=== PATIENT | male | born 1960 | race African-American/Black ===

== ENCOUNTER 2017-12-06 05:26 | Inpatient (IN) | payer MEDICARE, MEDICAID ==
[~2017-12-06] VITALS: Ht 177.8 cm; Wt 50.5 kg
[2017-12-06] VITALS (8 sets, daily range): BP systolic 79–147; BP diastolic 45–82
[2017-12-06] MEDS: BUDESONIDE (INHALATION) 0.5 MG/2 ML NEB NEB SCH (01:30)
[~2017-12-06 05:26] MED LIST: ALPR0.25 PO; BACL20TA PO; BUDE0.5S NEB; IPRAAER6 IN; LORANTIDINE; MONT5CHW17 PO; MORP60TA25 PO; PERCOT PO; PRE1T PO; PRE5T PO; TIZA4CAP PO
[2017-12-06] MEDS ORDERED: ALBUTEROL SULF 2.5 MG/0.5ML(0.5%) NEB SOLN NEB ONE ×2 (06:00→12:00)
[2017-12-06 06:22] LABS: Basophils # (auto) 0.2 uL; Basophils % (auto) 1.1 % (0.0-2.0); Eosinophils # (auto) 0.1 uL; Eosinophils % (auto) 0.8 % (0.0-7.0); Hematocrit 37.2 % (41.0-53.0); Hemoglobin 11.6 g/dL (13.5-17.5); Lymphocytes # (auto) 3.2 uL; Lymphocytes % (auto) 19.8 % (10.0-50.0); Mean Corpuscular Hemoglobin 29.6 pg (28.0-32.0); Mean Corpuscular Hgb Conc. 31.3 g/dL (32.0-36.0); Mean Corpuscular Volume 94.7 fL (80.0-100.0); Monocytes # (auto) 1.2 uL; Monocytes % (auto) 7.4 % (0.0-12.0); Neutrophils # (auto) 11.5 uL; Neutrophils % (auto) 70.9 % (37.0-80.0); Nucleated Red Blood Cells % 0.1 %; Platelet Count (auto) 375 10^3/uL (140-450); Red Blood Cells 3.93 10^6/uL (4.5-5.90); Red Cell Distribution Width 13.6 % (11.8-14.3); White Blood Cell 16.2 10^3/uL (4.4-10.8)
[2017-12-06] MEDS ORDERED: ONDANSETRON HCL 4 MG/2 ML VIAL IV ONE (06:30)
[2017-12-06] MEDS ORDERED: MORPHINE SULFATE 10 MG/ML INJ 1ML SDV IV ONE (06:30)
[2017-12-06] MEDS ORDERED: ACETAMINOPHEN 325 MG TAB PO ONE (06:30)
[2017-12-06 06:41] LABS: INR 0.98 (0.9-1.15); Partial Thromboplastin Time 31.9 sec (22.64-33.71); Prothrombin Time 10.7 sec (9.37-12.3)
[2017-12-06] MEDS ORDERED: methylPREDNISolone SOD SUCC 125 MG/2 ML VL IV ONE (06:45)
[2017-12-06] MEDS ORDERED: LEVOFLOXACIN 500MG 100 ML IV ONE (06:45)
[2017-12-06] MEDS ORDERED: HYDROmorphone HCL 2 MG/ML VL IV ONE (06:45)
[2017-12-06 06:51] LABS: Alanine Aminotransferase 16 U/L (16-61); Albumin 3.5 g/dL (3.4-5.0); Alkaline Phosphatase 100 U/L (45-117); Anion Gap 7 (5-15); Aspartate Aminotransferase 13 U/L (15-37); BUN/Creatinine Ratio 20.5; Bilirubin, Total 0.6 mg/dL (0.2-1.0); Blood Urea Nitrogen 18 mg/dL (7-18); Calcium 8.8 mg/dL (8.5-10.1); Carbon Dioxide 35 mmol/L (21-32); Chloride 98 mmol/L (98-107); GFR African American 116 mL/min; GFR Non-African American 96 mL/min; Glucose 165 mg/dL (74-106); Magnesium 2.4 mg/dL (1.6-2.6); Potassium 4.5 mmol/L (3.5-5.1); Sodium 140 mmol/L (136-145); Total Protein 7.9 g/dL (6.4-8.2)
[2017-12-06] MEDS ORDERED: MORPHINE SULF INJ 2 MG/ML SYRINGE 1ML IV PRN (11:00)
[2017-12-06] MEDS ORDERED: SODIUM CHLORIDE 0.9% 1,000 ML IV ONE (11:00)
[2017-12-06] MEDS ORDERED: NITROGLYCERIN 0.4 MG SL TAB SL PRN (11:00)
[2017-12-06] MEDS ORDERED: methylPREDNISolone SOD SUCC 40 MG/ML VL IV ONE (14:00)
[2017-12-06] MEDS ORDERED: hydrALAZINE HCL 20 MG/ML VL IV ONE (14:00)
[2017-12-06] MEDS: methylPREDNISolone SOD SUCC 125 MG/2 ML VL IV SCH ×2 (14:29→22:11)
[2017-12-06] MEDS ORDERED: hydrALAZINE HCL 20 MG/ML VL IV PRN (14:30)
[2017-12-07] MEDS: HYDROcodone-ACET 10/325MG TAB PO PRN ×2 (05:54→21:12)
[2017-12-07] MEDS: methylPREDNISolone SOD SUCC 125 MG/2 ML VL IV SCH ×3 (05:54→21:12)
[2017-12-07] MEDS: BUDESONIDE (INHALATION) 0.5 MG/2 ML NEB NEB SCH ×2 (06:08→18:05)
[2017-12-07 06:26] LABS: Hematocrit 33.2 % (41.0-53.0); Hemoglobin 10.8 g/dL (13.5-17.5); Mean Corpuscular Hemoglobin 30.5 pg (28.0-32.0); Mean Corpuscular Hgb Conc. 32.5 g/dL (32.0-36.0); Mean Corpuscular Volume 93.7 fL (80.0-100.0); Platelet Count (auto) 313 10^3/uL (140-450); Red Blood Cells 3.54 10^6/uL (4.5-5.90); Red Cell Distribution Width 13.8 % (11.8-14.3)
[2017-12-07 06:33] LABS: Basophils % (manual) 0 (0.0-2.0); Eosinophils % (manual) 0 (0-7); Metamyelocytes % 0; White Blood Cell 31.3 10^3/uL (4.4-10.8)
[2017-12-07 06:34] LABS: Blast Cells 0; Myelocytes % 0; Promyelocytes % 0; Reactive Lymphocytes 0
[2017-12-07 06:52] LABS: BUN/Creatinine Ratio 27.4; Potassium 4.3 mmol/L (3.5-5.1)
[2017-12-07 09:00] VITALS: BP 90/53
[2017-12-07 09:54] LABS: Band Neutrophils % (manual) 11; Lymphocytes % (manual) 2 (10.0-50.0); Monocytes % (manual) 4 (0-12)
[2017-12-07] MEDS: LEVOFLOXACIN 500MG 100 ML IV SCH (10:57)
[2017-12-07] MEDS: guaiFENesin-DM 100/10mg/5ml SYR PO PRN ×2 (11:41→21:13)
[2017-12-07 13:00] VITALS: BP 111/70
[2017-12-07] MEDS ORDERED: ROFL1TAB2 PO (13:31)
[2017-12-07] MEDS ORDERED: FLU220IH INH (13:31)
[2017-12-07] MEDS ORDERED: MORP30TA PO (13:31)
[2017-12-07 17:00] VITALS: BP 113/64
[2017-12-07] MEDS: ALPRAZolam 0.25 MG TAB PO PRN (17:47)
[2017-12-07] MEDS: ALBUTEROL SULF 2.5 MG/0.5ML(0.5%) NEB SOLN NEB PRN (18:05)
[2017-12-07] MEDS: MONTELUKAST SODIUM 10 MG TAB PO SCH (21:12)
[2017-12-07] MEDS: FLUTICASONE PROP NASAL SPR 0.05 % (50MCG) 16GM EACHNOSTRI SCH (21:26)
[2017-12-07 22:00] VITALS: BP 99/59
[2017-12-08] MEDS: ALBUTEROL SULF 2.5 MG/0.5ML(0.5%) NEB SOLN NEB PRN ×3 (04:40→18:58)
[2017-12-08 05:00] VITALS: BP 103/65
[2017-12-08 09:26] VITALS: BP 107/62
[2017-12-08] MEDS: LEVOFLOXACIN 500MG 100 ML IV SCH (09:57)
[2017-12-08] MEDS: DALIRESP 500MCG TAB PO SCH (09:58)
[2017-12-08] MEDS: ALPRAZolam 0.25 MG TAB PO PRN ×2 (09:58→21:44)
[2017-12-08] MEDS: predniSONE 20 MG TAB PO SCH (09:58)
[2017-12-08] MEDS: FLUTICASONE PROP NASAL SPR 0.05 % (50MCG) 16GM EACHNOSTRI SCH ×2 (09:58→21:34)
[2017-12-08] MEDS: MUCINEX 600 MG PO SCH (10:05)
[2017-12-08] MEDS: guaiFENesin-DM 100/10mg/5ml SYR PO PRN ×2 (10:06→21:45)
[2017-12-08] MEDS: BUDESONIDE (INHALATION) 0.5 MG/2 ML NEB NEB SCH ×2 (10:16→18:59)
[2017-12-08] MEDS: BOOST PLUS 8 ounce PO SCH ×2 (12:00→18:14)
[2017-12-08 12:58] VITALS: BP 105/53
[2017-12-08 15:07] LABS: CRP High Sensitivity 10.3 mg/dL (< 0.3)
[2017-12-08] MEDS: HYDROcodone-ACET 10/325MG TAB PO PRN (17:25)
[2017-12-08 17:26] VITALS: BP 112/61
[2017-12-08] MEDS: MONTELUKAST SODIUM 10 MG TAB PO SCH (21:34)
[2017-12-08 21:51] VITALS: BP 96/47
[2017-12-09] MEDS: ALBUTEROL SULF 2.5 MG/0.5ML(0.5%) NEB SOLN NEB PRN ×2 (00:27→10:38)
[2017-12-09 05:26] VITALS: BP 107/57
[2017-12-09] MEDS: HYDROcodone-ACET 10/325MG TAB PO PRN ×2 (07:50→21:37)
[2017-12-09 09:00] VITALS: BP 93/52
[2017-12-09 09:29] VITALS: BP 93/52
[2017-12-09] MEDS: FLUTICASONE PROP NASAL SPR 0.05 % (50MCG) 16GM EACHNOSTRI SCH ×2 (09:50→22:53)
[2017-12-09] MEDS: DALIRESP 500MCG TAB PO SCH (09:51)
[2017-12-09] MEDS: LEVOFLOXACIN 500MG 100 ML IV SCH (09:51)
[2017-12-09] MEDS: MUCINEX 600 MG PO SCH (09:51)
[2017-12-09] MEDS: ALPRAZolam 0.25 MG TAB PO PRN ×2 (09:51→21:37)
[2017-12-09] MEDS: predniSONE 20 MG TAB PO SCH (09:51)
[2017-12-09] MEDS: guaiFENesin-DM 100/10mg/5ml SYR PO PRN ×2 (09:52→21:37)
[2017-12-09] MEDS: BOOST PLUS 8 ounce PO SCH ×2 (09:54→12:00)
[2017-12-09] MEDS: BUDESONIDE (INHALATION) 0.5 MG/2 ML NEB NEB SCH ×2 (10:38→22:14)
[2017-12-09 12:00] VITALS: BP 103/57
[2017-12-09 17:01] VITALS: BP 118/60
[2017-12-09] MEDS: BOOST 8 ounces PO SCH (18:00)
[2017-12-09] MEDS: MONTELUKAST SODIUM 10 MG TAB PO SCH (21:37)
[2017-12-09 22:06] VITALS: BP 105/66
[2017-12-10 05:14] VITALS: BP 148/97
[2017-12-10 05:17] VITALS: BP 108/61
[2017-12-10] MEDS: ALBUTEROL SULF 2.5 MG/0.5ML(0.5%) NEB SOLN NEB PRN ×2 (06:18→22:55)
[2017-12-10] MEDS: BUDESONIDE (INHALATION) 0.5 MG/2 ML NEB NEB SCH ×2 (06:18→22:55)
[2017-12-10 08:00] VITALS: BP 157/104
[2017-12-10] MEDS: BOOST 8 ounces PO SCH ×3 (09:10→19:27)
[2017-12-10] MEDS: predniSONE 20 MG TAB PO SCH (10:55)
[2017-12-10] MEDS: DALIRESP 500MCG TAB PO SCH (10:55)
[2017-12-10] MEDS: FLUTICASONE PROP NASAL SPR 0.05 % (50MCG) 16GM EACHNOSTRI SCH ×2 (10:55→21:34)
[2017-12-10] MEDS: MUCINEX 600 MG PO SCH (10:55)
[2017-12-10] MEDS: LEVOFLOXACIN 500MG 100 ML IV SCH (10:55)
[2017-12-10] MEDS: guaiFENesin-DM 100/10mg/5ml SYR PO PRN ×2 (11:25→21:14)
[2017-12-10] MEDS: HYDROcodone-ACET 10/325MG TAB PO PRN ×2 (11:27→21:34)
[2017-12-10 12:00] VITALS: BP 127/68
[2017-12-10 17:00] VITALS: BP 104/62
[2017-12-10] MEDS: ALPRAZolam 0.25 MG TAB PO PRN (21:13)
[2017-12-10] MEDS: MONTELUKAST SODIUM 10 MG TAB PO SCH (21:13)
[2017-12-10 22:13] VITALS: BP 106/53
[2017-12-11 04:51] VITALS: BP 145/80
[2017-12-11 04:54] VITALS: BP 105/63
[2017-12-11] MEDS: BOOST 8 ounces PO SCH (08:00)
[2017-12-11 08:35] VITALS: BP 98/49
[2017-12-11] MEDS: ALBUTEROL SULF 2.5 MG/0.5ML(0.5%) NEB SOLN NEB PRN (09:42)
[2017-12-11] MEDS: FLUTICASONE PROP NASAL SPR 0.05 % (50MCG) 16GM EACHNOSTRI SCH (09:43)
[2017-12-11] MEDS: BUDESONIDE (INHALATION) 0.5 MG/2 ML NEB NEB SCH (09:43)
[2017-12-11] MEDS: LEVOFLOXACIN 500MG 100 ML IV SCH (09:44)
[2017-12-11] MEDS: DALIRESP 500MCG TAB PO SCH (09:44)
[2017-12-11] MEDS: MUCINEX 600 MG PO SCH (09:45)
[2017-12-11] MEDS: MONTELUKAST SODIUM 10 MG TAB PO SCH (09:45)
[2017-12-11] MEDS: predniSONE 20 MG TAB PO SCH (09:45)
[2017-12-11] MEDS: guaiFENesin-DM 100/10mg/5ml SYR PO PRN (09:50)
[2017-12-11] MEDS: HYDROcodone-ACET 10/325MG TAB PO PRN (09:50)
== END 2017-12-11 11:35 | disposition home or self-care (01) | DRG 189 ==
LOC: EDBD 05:26 → ER 05:26 → TELE 05:27 → TELE-CENTR 20:00 → CENTRAL 12-10 00:12
PROVIDERS: ADMIT Internal Medicine; ATTEND Internal Medicine
PROC: 5A09357 Assistance with Respiratory Ventilation, Less than 24 Consecutive Hours, Continuous Positive Airway Pressure (ICD-10-PCS; principal; 2017-12-06)
DX: J96.02 Acute respiratory failure with hypercapnia (principal); E87.2 Acidosis; I27.20 Pulmonary hypertension, unspecified; I50.9 Heart failure, unspecified; J44.9 Chronic obstructive pulmonary disease, unspecified; Z99.81 Dependence on supplemental oxygen; Z79.52 Long term (current) use of systemic steroids; Z87.891 Personal history of nicotine dependence
CPT/HCPCS: 36415; 36600; 71045; 80048; 80053; 80061; 81001; 82805; 82962; 83036; 83605; 83735; 83880; 84484; 85007; 85025; 85027; 85379; 85610; 85652; 85730; 86141; 87040; 93005; 93306; 94640; 94644; 94660; 96365; 96375; 96376; 99291; J1956; J2405

== ENCOUNTER 2018-06-07 09:07 | Inpatient (IN) | payer OTHER, MEDICAID ==
[~2018-06-07] VITALS: Ht 175.3 cm; Wt 48.2 kg
[~2018-06-07 09:07] MED LIST changes: +FLU220IH INH; -PRE5T PO; +ROFL1TAB2 PO
[2018-06-07] MEDS ORDERED: SODIUM CHLORIDE 0.9% 1,000 ML IV ONE (09:15)
[2018-06-07] MEDS ORDERED: methylPREDNISolone SOD SUCC 125 MG/2 ML VL IV ONE (09:15)
[2018-06-07] MEDS ORDERED: ALBUTEROL SULF 2.5 MG/0.5ML(0.5%) NEB SOLN NEB ONE (09:15)
[2018-06-07] MEDS ORDERED: IPRATROPIUM BROM 0.5 MG/2.5ML INH SOL NEB ONE (09:15)
[2018-06-07 09:33] LABS: Basophils # (auto) 0 uL; Basophils % (auto) 0.2 % (0.0-2.0); Eosinophils # (auto) 0 uL; Eosinophils % (auto) 0.1 % (0.0-7.0); Hematocrit 35.4 % (41.0-53.0); Hemoglobin 11.5 g/dL (13.5-17.5); Lymphocytes % (auto) 6.4 % (10.0-50.0); Mean Corpuscular Hemoglobin 31.5 pg (28.0-32.0); Mean Corpuscular Hgb Conc. 32.5 g/dL (32.0-36.0); Mean Corpuscular Volume 96.9 fL (80.0-100.0); Monocytes # (auto) 1.4 uL; Monocytes % (auto) 9.1 % (0.0-12.0); Neutrophils % (auto) 84.2 % (37.0-80.0); Platelet Count (auto) 201 10^3/uL (140-450); Red Blood Cells 3.66 10^6/uL (4.5-5.90); Red Cell Distribution Width 14.6 % (11.8-14.3); White Blood Cell 15.5 10^3/uL (4.4-10.8)
[2018-06-07 09:43] LABS: Partial Thromboplastin Time 36.3 sec (23.78-33.04); Prothrombin Time 10.7 sec (9.27-12.13)
[2018-06-07 09:51] LABS: Albumin 2.5 g/dL (3.4-5.0); BUN/Creatinine Ratio 34.2; Bilirubin, Total 0.7 mg/dL (0.2-1.0); Calcium 8.6 mg/dL (8.5-10.1); Potassium 3.5 mmol/L (3.5-5.1); Total Protein 7.7 g/dL (6.4-8.2)
[2018-06-07 10:00] VITALS: BP 101/59
[2018-06-07] MEDS ORDERED: cefTRIAXone 1GM/10ml IVPUSH 10 ML IV ONE (10:45)
[2018-06-07] MEDS ORDERED: AZITHROMYCIN 500MG/ 250ML 250 ML IV ONE (10:45)
[2018-06-07 10:55] VITALS: BP 101/59
[2018-06-07] MEDS ORDERED: PROMETHAZINE HCL 25 MG/ML 1ML IV PRN (11:00)
[2018-06-07] MEDS ORDERED: MORPHINE SULFATE 4 MG/ML SYR/VIAL IV PRN ×2 (11:00)
[2018-06-07] MEDS ORDERED: TEMAZEPAM 15 MG CAP PO PRN (11:00)
[2018-06-07] MEDS ORDERED: LACTULOSE 20Gm/30ML SOLN PO PRN (11:00)
[2018-06-07] MEDS ORDERED: LORazepam 0.5 MG TAB PO PRN ×2 (11:00→11:30)
[2018-06-07] MEDS ORDERED: ALBUTEROL SULF 2.5 MG/0.5ML(0.5%) NEB SOLN NEB PRN (11:00)
[2018-06-07] MEDS ORDERED: NITROGLYCERIN 0.4 MG SL TAB SL PRN (11:00)
[2018-06-07] MEDS ORDERED: ACETAMINOPHEN 500 MG TAB PO PRN (11:00)
[2018-06-07] MEDS ORDERED: KETOROLAC TROMETH 30 MG/ML 1ML VIAL IV ONE (11:00)
[2018-06-07] MEDS: SODIUM CHLORIDE 0.9% 1,000 ML IV SCH (11:48)
[2018-06-07] MEDS: LEVOFLOXACIN 500MG 100 ML IV SCH (11:48)
[2018-06-07] MEDS: ENOXAPARIN SOD 40 MG/0.4 ML SYRINGE SC SCH (11:48)
[2018-06-07] MEDS: IPRATROPIUM BROM 0.5 MG/2.5ML INH SOL NEB SCH ×3 (12:14→23:25)
[2018-06-07] MEDS: ALBUTEROL SULF 2.5 MG/0.5ML(0.5%) NEB SOLN NEB SCH ×3 (12:14→23:25)
[2018-06-07 13:17] VITALS: BP 91/57
[2018-06-07] MEDS ORDERED: PATIENTS OWN MEDICATION (Baclofen 10 MG) PO SCH (14:00)
[2018-06-07] MEDS ORDERED: BUDESONIDE (INHALATION) 0.5 MG/2 ML NEB NEB SCH (14:00)
[2018-06-07] MEDS: CLINDAMYCIN 600MG IV 50 ML IV SCH (14:57)
[2018-06-07] MEDS: methylPREDNISolone SOD SUCC 40 MG/ML VL IV SCH (14:57)
[2018-06-07] MEDS: BACLOFEN 10 MG TAB PO SCH (14:57)
[2018-06-07 16:31] VITALS: BP 83/53
[2018-06-07] MEDS ORDERED: IOHEXOL 300 MG/ML 100ML BOTTLE IJ ONE (16:41)
[2018-06-07 17:23] VITALS: BP 92/57
[2018-06-07] MEDS ORDERED: PATIENTS OWN MEDICATION (Montelukast Sodium (Singulair) 10 MG) PO SCH (18:00)
[2018-06-07] MEDS: BUDESONIDE (INHALATION) 0.5 MG/2 ML NEB NEB SCH (18:09)
[2018-06-07 22:00] VITALS: BP 84/55
[2018-06-07] MEDS ORDERED: FLUTICASONE PROPIONATE 220 MCG INH SCH (22:00)
[2018-06-07] MEDS ORDERED: PATIENTS OWN MEDICATION (Alprazolam (Xanax) 1 TAB) PO SCH (22:00)
[2018-06-07] MEDS ORDERED: MORPHINE SULFATE 30 MG PO SCH (22:00)
[2018-06-08] MEDS: CLINDAMYCIN 600MG IV 50 ML IV SCH ×2 (00:16→05:29)
[2018-06-08] MEDS: TIZANIDINE 4 MG PO SCH ×3 (00:16→22:00)
[2018-06-08] MEDS: methylPREDNISolone SOD SUCC 40 MG/ML VL IV SCH ×5 (00:16→22:07)
[2018-06-08] MEDS: BACLOFEN 10 MG TAB PO SCH ×4 (00:17→22:07)
[2018-06-08] MEDS: MORPHINE SULF 30 mg ER tab PO SCH ×3 (00:17→22:00)
[2018-06-08] MEDS: SODIUM CHLORIDE 0.9% 1,000 ML IV SCH ×3 (00:18→22:11)
[2018-06-08] MEDS: ALPRAZolam 0.25 MG TAB PO SCH ×3 (00:18→22:00)
[2018-06-08 05:00] VITALS: BP 91/55
[2018-06-08] MEDS: MONTELUKAST SODIUM 10 MG TAB PO SCH ×2 (05:28→18:08)
[2018-06-08] MEDS: HYDROcodone-ACET 5/325MG TAB PO PRN ×3 (05:29→22:05)
[2018-06-08] MEDS: IPRATROPIUM BROM 0.5 MG/2.5ML INH SOL NEB SCH ×3 (06:25→22:22)
[2018-06-08] MEDS: BUDESONIDE (INHALATION) 0.5 MG/2 ML NEB NEB SCH ×2 (06:25→22:22)
[2018-06-08] MEDS: ALBUTEROL SULF 2.5 MG/0.5ML(0.5%) NEB SOLN NEB SCH ×3 (06:25→22:22)
[2018-06-08 07:51] LABS: Basophils # (auto) 0 uL; Eosinophils # (auto) 0 uL; Hematocrit 33.3 % (41.0-53.0); Lymphocytes # (auto) 0.4 uL; Lymphocytes % (auto) 3.2 % (10.0-50.0); Mean Corpuscular Hemoglobin 31.6 pg (28.0-32.0); Mean Corpuscular Volume 95.6 fL (80.0-100.0); Monocytes # (auto) 0.4 uL; Neutrophils # (auto) 12.4 uL; Neutrophils % (auto) 93.8 % (37.0-80.0); Nucleated Red Blood Cells % 0.1 %; Platelet Count (auto) 198 10^3/uL (140-450); Red Blood Cells 3.49 10^6/uL (4.5-5.90); Red Cell Distribution Width 14.4 % (11.8-14.3); White Blood Cell 13.2 10^3/uL (4.4-10.8)
[2018-06-08 07:59] LABS: Albumin 2.1 g/dL (3.4-5.0); BUN/Creatinine Ratio 46.4; Bilirubin, Total 0.4 mg/dL (0.2-1.0); Calcium 8.6 mg/dL (8.5-10.1); Potassium 3.6 mmol/L (3.5-5.1); Total Protein 6.9 g/dL (6.4-8.2)
[2018-06-08] MEDS ORDERED: IOHEXOL 300 MG/ML 100ML BOTTLE IJ ONE (08:08)
[2018-06-08 09:00] VITALS: BP 88/48
[2018-06-08] MEDS: PANTOPRAZOLE 40 MG TAB PO SCH (09:23)
[2018-06-08] MEDS: LEVOFLOXACIN 500MG 100 ML IV SCH (09:23)
[2018-06-08] MEDS: ENOXAPARIN SOD 40 MG/0.4 ML SYRINGE SC SCH (09:24)
[2018-06-08 13:00] VITALS: BP 93/61
[2018-06-08 16:51] VITALS: BP 86/38
[2018-06-08] MEDS: PIPERACILLIN-TAZOB 3.375GM 100 ML IV SCH (18:08)
[2018-06-08 22:00] VITALS: BP 89/48
[2018-06-08 22:36] LABS: Urine Bacteria NONE SEEN /hpf (None Seen); Urine Blood Negative /uL (Negative); Urine WBC <1 /hpf (0 - 3)
[2018-06-08 22:39] LABS: Urine Specific Gravity > 1.050 (1.001-1.035)
[2018-06-09] MEDS: PIPERACILLIN-TAZOB 3.375GM 100 ML IV SCH ×4 (00:23→17:49)
[2018-06-09] MEDS: IPRATROPIUM BROM 0.5 MG/2.5ML INH SOL NEB SCH ×4 (00:36→18:36)
[2018-06-09] MEDS: ALBUTEROL SULF 2.5 MG/0.5ML(0.5%) NEB SOLN NEB SCH ×4 (00:36→18:36)
[2018-06-09] MEDS: methylPREDNISolone SOD SUCC 40 MG/ML VL IV SCH ×2 (03:03→17:49)
[2018-06-09] MEDS: HYDROcodone-ACET 5/325MG TAB PO PRN ×3 (04:17→21:04)
[2018-06-09 05:00] VITALS: BP 85/48
[2018-06-09] MEDS: BUDESONIDE (INHALATION) 0.5 MG/2 ML NEB NEB SCH (06:02)
[2018-06-09] MEDS: BACLOFEN 10 MG TAB PO SCH ×3 (06:04→21:02)
[2018-06-09 06:53] LABS: Basophils # (auto) 0 uL; Basophils % (auto) 0.2 % (0.0-2.0); Eosinophils # (auto) 0 uL; Hematocrit 29.3 % (41.0-53.0); Hemoglobin 9.7 g/dL (13.5-17.5); Lymphocytes # (auto) 0.3 uL; Lymphocytes % (auto) 3.6 % (10.0-50.0); Mean Corpuscular Hemoglobin 31.7 pg (28.0-32.0); Mean Corpuscular Hgb Conc. 33.2 g/dL (32.0-36.0); Mean Corpuscular Volume 95.4 fL (80.0-100.0); Monocytes # (auto) 0.3 uL; Monocytes % (auto) 3.6 % (0.0-12.0); Neutrophils # (auto) 8.7 uL; Neutrophils % (auto) 92.6 % (37.0-80.0); Nucleated Red Blood Cells % 0.1 %; Platelet Count (auto) 222 10^3/uL (140-450); Red Blood Cells 3.07 10^6/uL (4.5-5.90); Red Cell Distribution Width 14.3 % (11.8-14.3); White Blood Cell 9.3 10^3/uL (4.4-10.8)
[2018-06-09 07:15] LABS: Calcium 8.2 mg/dL (8.5-10.1); Magnesium 2.4 mg/dL (1.6-2.6); Potassium 3.8 mmol/L (3.5-5.1)
[2018-06-09 07:17] LABS: BUN/Creatinine Ratio 38.8
[2018-06-09 08:33] VITALS: BP 86/46
[2018-06-09] MEDS ORDERED: VANCOMYCIN PER PHARMACY 0 MG IV SCH (09:00)
[2018-06-09] MEDS ORDERED: DEXTROSE (50%) 50ML SYRG IV PRN (09:30)
[2018-06-09] MEDS: ALPRAZolam 0.25 MG TAB PO SCH ×2 (10:00→21:03)
[2018-06-09] MEDS: MORPHINE SULF 30 mg ER tab PO SCH ×2 (10:00→21:03)
[2018-06-09] MEDS: TIZANIDINE 4 MG PO SCH ×2 (10:00→20:29)
[2018-06-09] MEDS: PANTOPRAZOLE 40 MG TAB PO SCH (10:21)
[2018-06-09] MEDS: VANCOMYCIN 500 MG in D5W 5% 100 ML IV SCH ×2 (10:22→21:02)
[2018-06-09] MEDS: ENOXAPARIN SOD 40 MG/0.4 ML SYRINGE SC SCH (10:22)
[2018-06-09] MEDS: ACCU-CHEK COMFORT CURVE STRIP VI SCH ×3 (12:00→21:03)
[2018-06-09 12:07] VITALS: BP 91/57
[2018-06-09] MEDS: InsuLIN REG 1unit/0.01ml Soln (100units/ml) SC SCH ×3 (12:34→21:03)
[2018-06-09] MEDS: MONTELUKAST SODIUM 10 MG TAB PO SCH (17:49)
[2018-06-09] MEDS: SODIUM CHLORIDE 0.9% 1,000 ML IV SCH ×2 (17:51→20:04)
[2018-06-09 19:48] VITALS: BP 105/70
[2018-06-10] VITALS (7 sets, daily range): BP systolic 85–106; BP diastolic 32–51
[2018-06-10] MEDS: PIPERACILLIN-TAZOB 3.375GM 100 ML IV SCH ×4 (00:03→17:43)
[2018-06-10] MEDS: methylPREDNISolone SOD SUCC 40 MG/ML VL IV SCH ×3 (00:03→17:42)
[2018-06-10] MEDS: IPRATROPIUM BROM 0.5 MG/2.5ML INH SOL NEB SCH ×4 (00:15→19:04)
[2018-06-10] MEDS: ALBUTEROL SULF 2.5 MG/0.5ML(0.5%) NEB SOLN NEB SCH ×4 (00:15→19:05)
[2018-06-10] MEDS: BUDESONIDE (INHALATION) 0.5 MG/2 ML NEB NEB SCH ×3 (00:15→19:05)
[2018-06-10] MEDS: SODIUM CHLORIDE 0.9% 1,000 ML IV SCH ×2 (05:22→16:30)
[2018-06-10] MEDS: HYDROcodone-ACET 5/325MG TAB PO PRN ×2 (05:22→19:40)
[2018-06-10 05:42] LABS: Basophils # (auto) 0 uL; Basophils % (auto) 0.2 % (0.0-2.0); Eosinophils # (auto) 0 uL; Hematocrit 29.3 % (41.0-53.0); Hemoglobin 9.9 g/dL (13.5-17.5); Lymphocytes # (auto) 0.5 uL; Lymphocytes % (auto) 4.7 % (10.0-50.0); Mean Corpuscular Hemoglobin 32.4 pg (28.0-32.0); Mean Corpuscular Hgb Conc. 33.6 g/dL (32.0-36.0); Mean Corpuscular Volume 96.3 fL (80.0-100.0); Monocytes # (auto) 0.3 uL; Monocytes % (auto) 2.5 % (0.0-12.0); Neutrophils # (auto) 9.4 uL; Neutrophils % (auto) 92.6 % (37.0-80.0); Platelet Count (auto) 239 10^3/uL (140-450); Red Blood Cells 3.05 10^6/uL (4.5-5.90); Red Cell Distribution Width 14.1 % (11.8-14.3); White Blood Cell 10.2 10^3/uL (4.4-10.8)
[2018-06-10] MEDS: BACLOFEN 10 MG TAB PO SCH ×3 (06:00→21:34)
[2018-06-10 06:07] LABS: BUN/Creatinine Ratio 28.3; Calcium 7.6 mg/dL (8.5-10.1); Potassium 3.7 mmol/L (3.5-5.1)
[2018-06-10] MEDS: InsuLIN REG 1unit/0.01ml Soln (100units/ml) SC SCH ×4 (06:36→21:34)
[2018-06-10] MEDS: ACCU-CHEK COMFORT CURVE STRIP VI SCH ×4 (06:36→21:12)
[2018-06-10] MEDS: PANTOPRAZOLE 40 MG TAB PO SCH (09:58)
[2018-06-10] MEDS: VANCOMYCIN 500 MG in D5W 5% 100 ML IV SCH ×2 (09:58→21:49)
[2018-06-10] MEDS: ENOXAPARIN SOD 40 MG/0.4 ML SYRINGE SC SCH (09:58)
[2018-06-10] MEDS: MORPHINE SULF 30 mg ER tab PO SCH ×2 (09:59→21:11)
[2018-06-10] MEDS: TIZANIDINE 4 MG PO SCH (09:59)
[2018-06-10] MEDS: ALPRAZolam 0.25 MG TAB PO SCH ×2 (09:59→21:11)
[2018-06-10] MEDS ORDERED: MORPHINE SULFATE 4 MG/ML SYR/VIAL IV PRN (10:45)
[2018-06-10 10:56] LABS: % Iron Saturation 9.9 % (20-55)
[2018-06-10] MEDS: Ensure Enlive Chocolate 8oz Bottle PO SCH ×2 (12:00→17:44)
[2018-06-10] MEDS: MONTELUKAST SODIUM 10 MG TAB PO SCH (17:43)
[2018-06-10] MEDS: Pro-Stat SF 30ml Vanilla PO SCH (17:44)
[2018-06-11] VITALS: BP 95/48
[2018-06-11] MEDS: PIPERACILLIN-TAZOB 3.375GM 100 ML IV SCH ×2 (00:03→06:38)
[2018-06-11] MEDS: methylPREDNISolone SOD SUCC 40 MG/ML VL IV SCH ×3 (00:03→21:00)
[2018-06-11] MEDS: SODIUM CHLORIDE 0.9% 1,000 ML IV SCH ×2 (00:03→10:52)
[2018-06-11] MEDS: IPRATROPIUM BROM 0.5 MG/2.5ML INH SOL NEB SCH ×3 (00:20→18:32)
[2018-06-11] MEDS: ALBUTEROL SULF 2.5 MG/0.5ML(0.5%) NEB SOLN NEB SCH ×4 (00:20→18:31)
[2018-06-11 04:00] VITALS: BP 94/32
[2018-06-11 05:29] LABS: Basophils # (auto) 0 uL; Eosinophils # (auto) 0 uL; Hematocrit 28.4 % (41.0-53.0); Hemoglobin 9.4 g/dL (13.5-17.5); Lymphocytes # (auto) 0.5 uL; Lymphocytes % (auto) 4.9 % (10.0-50.0); Mean Corpuscular Hgb Conc. 33.2 g/dL (32.0-36.0); Mean Corpuscular Volume 96.2 fL (80.0-100.0); Monocytes # (auto) 0.2 uL; Monocytes % (auto) 2.5 % (0.0-12.0); Neutrophils % (auto) 92.6 % (37.0-80.0); Platelet Count (auto) 262 10^3/uL (140-450); Red Blood Cells 2.95 10^6/uL (4.5-5.90); Red Cell Distribution Width 14.1 % (11.8-14.3); White Blood Cell 9.7 10^3/uL (4.4-10.8)
[2018-06-11] MEDS: BACLOFEN 10 MG TAB PO SCH ×3 (05:35→22:00)
[2018-06-11] MEDS: ACCU-CHEK COMFORT CURVE STRIP VI SCH ×4 (05:35→22:00)
[2018-06-11] MEDS: InsuLIN REG 1unit/0.01ml Soln (100units/ml) SC SCH ×4 (05:41→22:00)
[2018-06-11] MEDS ORDERED: VANCOMYCIN 500 MG in D5W 5% 100 ML IV SCH (06:00)
[2018-06-11] MEDS: HYDROcodone-ACET 5/325MG TAB PO PRN ×3 (06:59→19:45)
[2018-06-11] MEDS: BUDESONIDE (INHALATION) 0.5 MG/2 ML NEB NEB SCH ×2 (07:01→18:32)
[2018-06-11 08:00] VITALS: BP 89/51
[2018-06-11] MEDS: Ensure Enlive Chocolate 8oz Bottle PO SCH ×3 (08:00→17:48)
[2018-06-11] MEDS: Pro-Stat SF 30ml Vanilla PO SCH ×2 (08:00→17:48)
[2018-06-11] MEDS: PANTOPRAZOLE 40 MG TAB PO SCH ×2 (09:54→22:00)
[2018-06-11] MEDS: ENOXAPARIN SOD 40 MG/0.4 ML SYRINGE SC SCH (09:54)
[2018-06-11] MEDS: ALPRAZolam 0.25 MG TAB PO SCH ×2 (09:54→22:00)
[2018-06-11] MEDS: MORPHINE SULF 30 mg ER tab PO SCH ×2 (09:54→22:00)
[2018-06-11] MEDS ORDERED: LEVOFLOXACIN 750MG 150 ML IV ONE (10:30)
[2018-06-11 12:00] VITALS: BP 94/51
[2018-06-11] MEDS ORDERED: FLUCONAZOLE 200MG/100ML 100 ML IV ONE (12:00)
[2018-06-11] MEDS ORDERED: LIDOCAINE HCL 5 % TOP OINT 35 GM TOP PRN (13:15)
[2018-06-11] MEDS ORDERED: GOLYTELY 4L KIT PO ONE (14:45)
[2018-06-11] MEDS ORDERED: GOLYTELY 4L KIT ONE (14:47)
[2018-06-11 16:00] VITALS: BP 101/54
[2018-06-11] MEDS: MONTELUKAST SODIUM 10 MG TAB PO SCH (19:44)
[2018-06-11 20:00] VITALS: BP 106/53
[2018-06-12] VITALS: BP 98/49
[2018-06-12] MEDS: IPRATROPIUM BROM 0.5 MG/2.5ML INH SOL NEB SCH ×5 (00:55→23:17)
[2018-06-12] MEDS: ALBUTEROL SULF 2.5 MG/0.5ML(0.5%) NEB SOLN NEB SCH ×5 (00:55→23:17)
[2018-06-12] MEDS: SODIUM CHLORIDE 0.9% 1,000 ML IV SCH ×2 (00:59→14:51)
[2018-06-12 04:00] VITALS: BP 102/56
[2018-06-12 05:24] LABS: Basophils # (auto) 0 uL; Basophils % (auto) 0.1 % (0.0-2.0); Eosinophils # (auto) 0 uL; Hematocrit 28.8 % (41.0-53.0); Hemoglobin 9.5 g/dL (13.5-17.5); Lymphocytes # (auto) 0.4 uL; Lymphocytes % (auto) 3.3 % (10.0-50.0); Mean Corpuscular Hemoglobin 31.6 pg (28.0-32.0); Mean Corpuscular Volume 95.9 fL (80.0-100.0); Monocytes # (auto) 0.2 uL; Monocytes % (auto) 1.4 % (0.0-12.0); Neutrophils # (auto) 12.2 uL; Neutrophils % (auto) 95.2 % (37.0-80.0); Platelet Count (auto) 308 10^3/uL (140-450); White Blood Cell 12.8 10^3/uL (4.4-10.8)
[2018-06-12] MEDS ORDERED: SODIUM CHLORIDE 0.9 % NEB SOLN 3ML NEB ONE (05:27)
[2018-06-12 05:35] LABS: Calcium 7.6 mg/dL (8.5-10.1); Potassium 3.8 mmol/L (3.5-5.1)
[2018-06-12] MEDS: BUDESONIDE (INHALATION) 0.5 MG/2 ML NEB NEB SCH ×2 (05:40→23:17)
[2018-06-12] MEDS: InsuLIN REG 1unit/0.01ml Soln (100units/ml) SC SCH ×3 (06:11→17:00)
[2018-06-12] MEDS: ACCU-CHEK COMFORT CURVE STRIP VI SCH ×4 (06:12→22:00)
[2018-06-12] MEDS: BACLOFEN 10 MG TAB PO SCH ×2 (06:12→14:00)
[2018-06-12 08:00] VITALS: BP 106/53
[2018-06-12] MEDS: Ensure Enlive Chocolate 8oz Bottle PO SCH ×3 (08:00→18:00)
[2018-06-12] MEDS: Pro-Stat SF 30ml Vanilla PO SCH ×2 (08:00→18:00)
[2018-06-12] MEDS: methylPREDNISolone SOD SUCC 40 MG/ML VL IV SCH (09:02)
[2018-06-12] MEDS: MORPHINE SULF 30 mg ER tab PO SCH (10:00)
[2018-06-12] MEDS: PANTOPRAZOLE 40 MG TAB PO SCH (10:00)
[2018-06-12] MEDS: ENOXAPARIN SOD 40 MG/0.4 ML SYRINGE SC SCH (10:00)
[2018-06-12] MEDS: ALPRAZolam 0.25 MG TAB PO SCH (10:00)
[2018-06-12] MEDS: LEVOFLOXACIN 750MG 150 ML IV SCH (10:59)
[2018-06-12] MEDS ORDERED: MIDAZOLAM HCL 1MG/1ML-2 ML VIAL ONE (11:29)
[2018-06-12] MEDS ORDERED: fentaNYL CITRATE 100 MCG/2 ML VL ONE (11:29)
[2018-06-12] MEDS ORDERED: PROPOFOL 10 MG/ML 20 ML IV ONE (11:32)
[2018-06-12] MEDS ORDERED: MIDAZOLAM HCL 1MG/1ML-2 ML VIAL IV ONE (11:35)
[2018-06-12] MEDS ORDERED: hydrALAZINE HCL 20 MG/ML VL IV PRN (12:15)
[2018-06-12] MEDS ORDERED: ONDANSETRON HCL 4 MG/2 ML VIAL IV ONE (12:15)
[2018-06-12] MEDS ORDERED: ePHEDrine SULFATE 50 MG/ML AMP IV PRN (12:15)
[2018-06-12] MEDS ORDERED: fentaNYL CITRATE 100 MCG/2 ML VL IV ONE (13:00)
[2018-06-12] MEDS: FLUCONAZOLE 200MG/100ML 100 ML IV SCH (14:51)
[2018-06-12] MEDS: HYDROcodone-ACET 5/325MG TAB PO PRN ×2 (15:00→20:47)
[2018-06-12 17:21] VITALS: BP 105/61
[2018-06-12] MEDS: MONTELUKAST SODIUM 10 MG TAB PO SCH (17:47)
[2018-06-12 21:09] VITALS: BP 106/54
[2018-06-13] MEDS: ALPRAZolam 0.25 MG TAB PO SCH ×3 (00:58→21:55)
[2018-06-13] MEDS: MORPHINE SULF 30 mg ER tab PO SCH ×3 (00:58→21:54)
[2018-06-13] MEDS: PANTOPRAZOLE 40 MG TAB PO SCH ×3 (00:59→21:54)
[2018-06-13] MEDS: BACLOFEN 10 MG TAB PO SCH ×4 (00:59→21:53)
[2018-06-13] MEDS: SODIUM CHLORIDE 0.9% 1,000 ML IV SCH ×2 (01:02→09:52)
[2018-06-13] MEDS: methylPREDNISolone SOD SUCC 40 MG/ML VL IV SCH ×3 (01:11→21:53)
[2018-06-13] MEDS: InsuLIN REG 1unit/0.01ml Soln (100units/ml) SC SCH ×5 (01:15→21:55)
[2018-06-13 05:07] VITALS: BP 111/56
[2018-06-13] MEDS: ACCU-CHEK COMFORT CURVE STRIP VI SCH ×4 (05:41→21:55)
[2018-06-13] MEDS: ALBUTEROL SULF 2.5 MG/0.5ML(0.5%) NEB SOLN NEB SCH ×3 (06:59→18:58)
[2018-06-13] MEDS: IPRATROPIUM BROM 0.5 MG/2.5ML INH SOL NEB SCH ×3 (06:59→18:58)
[2018-06-13] MEDS: BUDESONIDE (INHALATION) 0.5 MG/2 ML NEB NEB SCH ×2 (07:00→18:58)
[2018-06-13 07:36] LABS: Basophils # (auto) 0 uL; Basophils % (auto) 0.1 % (0.0-2.0); Eosinophils # (auto) 0 uL; Hematocrit 29.4 % (41.0-53.0); Hemoglobin 9.5 g/dL (13.5-17.5); Lymphocytes # (auto) 0.4 uL; Lymphocytes % (auto) 3.6 % (10.0-50.0); Mean Corpuscular Hemoglobin 30.9 pg (28.0-32.0); Mean Corpuscular Hgb Conc. 32.2 g/dL (32.0-36.0); Mean Corpuscular Volume 96.1 fL (80.0-100.0); Monocytes # (auto) 0.2 uL; Monocytes % (auto) 1.7 % (0.0-12.0); Neutrophils # (auto) 10.8 uL; Neutrophils % (auto) 94.6 % (37.0-80.0); Platelet Count (auto) 384 10^3/uL (140-450); Red Blood Cells 3.06 10^6/uL (4.5-5.90); Red Cell Distribution Width 14.1 % (11.8-14.3); White Blood Cell 11.4 10^3/uL (4.4-10.8)
[2018-06-13] MEDS: Ensure Enlive Chocolate 8oz Bottle PO SCH ×3 (08:00→18:00)
[2018-06-13] MEDS: Pro-Stat SF 30ml Vanilla PO SCH ×2 (08:00→18:00)
[2018-06-13 09:00] VITALS: BP 115/62
[2018-06-13] MEDS ORDERED: MORPHINE SULFATE 4 MG/ML SYR/VIAL IV PRN (09:30)
[2018-06-13] MEDS ORDERED: HYDROcodone-ACET 5/325MG TAB PO PRN (09:30)
[2018-06-13] MEDS: LEVOFLOXACIN 750MG 150 ML IV SCH (09:52)
[2018-06-13] MEDS ORDERED: ENOXAPARIN SOD 40 MG/0.4 ML SYRINGE SC SCH (10:00)
[2018-06-13] MEDS: FLUCONAZOLE 200MG/100ML 100 ML IV SCH (12:03)
[2018-06-13 13:00] VITALS: BP 106/61
[2018-06-13 17:00] VITALS: BP 114/64
[2018-06-13] MEDS: MONTELUKAST SODIUM 10 MG TAB PO SCH (18:01)
[2018-06-13 21:42] VITALS: BP 109/66
[2018-06-14] MEDS: IPRATROPIUM BROM 0.5 MG/2.5ML INH SOL NEB SCH ×2 (00:29→07:13)
[2018-06-14] MEDS: ALBUTEROL SULF 2.5 MG/0.5ML(0.5%) NEB SOLN NEB SCH ×2 (00:29→07:13)
[2018-06-14 04:32] VITALS: BP 115/56
[2018-06-14 05:35] LABS: Basophils # (auto) 0 uL; Eosinophils # (auto) 0 uL; Lymphocytes # (auto) 0.3 uL
[2018-06-14 05:39] LABS: Hematocrit 28.1 % (41.0-53.0); Hemoglobin 9.5 g/dL (13.5-17.5); Lymphocytes % (auto) 2.7 % (10.0-50.0); Mean Corpuscular Hemoglobin 32.6 pg (28.0-32.0); Mean Corpuscular Hgb Conc. 33.9 g/dL (32.0-36.0); Mean Corpuscular Volume 96.1 fL (80.0-100.0); Monocytes # (auto) 0.3 uL; Monocytes % (auto) 2.5 % (0.0-12.0); Neutrophils # (auto) 9.9 uL; Neutrophils % (auto) 94.8 % (37.0-80.0); Platelet Count (auto) 439 10^3/uL (140-450); Red Blood Cells 2.92 10^6/uL (4.5-5.90); Red Cell Distribution Width 14.4 % (11.8-14.3); White Blood Cell 10.5 10^3/uL (4.4-10.8)
[2018-06-14 05:44] LABS: BUN/Creatinine Ratio 18.8; Calcium 7.9 mg/dL (8.5-10.1); Potassium 4.6 mmol/L (3.5-5.1)
[2018-06-14] MEDS: BACLOFEN 10 MG TAB PO SCH (06:18)
[2018-06-14] MEDS: ACCU-CHEK COMFORT CURVE STRIP VI SCH (06:35)
[2018-06-14] MEDS: InsuLIN REG 1unit/0.01ml Soln (100units/ml) SC SCH (06:35)
[2018-06-14] MEDS: SODIUM CHLORIDE 0.9% 1,000 ML IV SCH (07:00)
[2018-06-14] MEDS: BUDESONIDE (INHALATION) 0.5 MG/2 ML NEB NEB SCH (07:13)
[2018-06-14] MEDS: Pro-Stat SF 30ml Vanilla PO SCH (08:00)
[2018-06-14] MEDS: Ensure Enlive Chocolate 8oz Bottle PO SCH (08:00)
[2018-06-14 09:00] VITALS: BP 129/63
[2018-06-14] MEDS: methylPREDNISolone SOD SUCC 40 MG/ML VL IV SCH (09:00)
[2018-06-14] MEDS ORDERED: DEXT1SYP9 PO (09:18)
[2018-06-14] MEDS ORDERED: LEVO750T2 PO (09:18)
[2018-06-14] MEDS ORDERED: SACC250C PO (09:18)
[2018-06-14] MEDS ORDERED: FLUC200T35 PO (09:18)
[2018-06-14] MEDS: LEVOFLOXACIN 750MG 150 ML IV SCH (10:00)
== END 2018-06-14 11:00 | disposition home health service (06) | DRG 871 ==
LOC: EDBD 09:07 → ER 09:07 → EDUNIT# 09:07 → TELE 09:08 → TELE-CENTR 12:53 → DOU IN ICU 06-09 16:03 → TELE-EAST 06-12 15:50
PROVIDERS: ADMIT Internal Medicine; ATTEND Internal Medicine
PROC: 0DJ08ZZ Inspection of Upper Intestinal Tract, Via Natural or Artificial Opening Endoscopic (ICD-10-PCS; principal; 2018-06-12 11:25)
DX: A41.9 Sepsis, unspecified organism (principal); J69.0 Pneumonitis due to inhalation of food and vomit; E43 Unspecified severe protein-calorie malnutrition; J96.21 Acute and chronic respiratory failure with hypoxia; J96.22 Acute and chronic respiratory failure with hypercapnia; J44.1 Chronic obstructive pulmonary disease with (acute) exacerbation; Z68.1 Body mass index [BMI] 19.9 or less, adult; K86.1 Other chronic pancreatitis; M48.56XA Collapsed vertebra, not elsewhere classified, lumbar region, initial encounter for fracture; D63.8 Anemia in other chronic diseases classified elsewhere; F41.1 Generalized anxiety disorder; T38.0X5A Adverse effect of glucocorticoids and synthetic analogues, initial encounter; W01.0XXA Fall on same level from slipping, tripping and stumbling without subsequent striking against object, initial encounter; Y93.89 Activity, other specified; Y92.89 Other specified places as the place of occurrence of the external cause; Y99.8 Other external cause status; Z76.82 Awaiting organ transplant status; Z87.11 Personal history of peptic ulcer disease; Z87.891 Personal history of nicotine dependence
CPT/HCPCS: 36415; 36600; 43235; 71046; 71101; 71250; 74177; 80048; 80053; 80061; 80202; 81001; 82270; 82805; 82962; 83540; 83550; 83735; 83880; 84443; 84484; 85025; 85610; 85730; 87040; 87070; 87077; 87186; 87205; 93005; 94640; 94660; 96372; 96374; 96375; A6257; J0696; J1450; J1815; J1885; J1956; J2250; J2543; J2704; J3490; J7060